=== PATIENT | male | born 1935 | race Caucasian/White ===

== ENCOUNTER 2018-02-23 07:10 | Outpatient (CLI) | payer OTHER | END 2018-02-23 07:13 | disposition home or self-care (01) | LOC: SONOGRAMA 07:10 → MAMO-SONO 07:45 | DX: R10.84 Generalized abdominal pain (principal) ==

== ENCOUNTER 2018-02-24 09:12 | Outpatient (CLI) | payer OTHER | END 2018-02-24 09:16 | disposition home or self-care (01) | LOC: NUCLEAR 09:12 | DX: I87.2 Venous insufficiency (chronic) (peripheral) (principal) ==

== ENCOUNTER → 2018-02-26 08:21 | Outpatient (CLI) | payer OTHER | END | disposition home or self-care (01) | LOC: LAB 08:21 | DX: I10 Essential (primary) hypertension (principal); E11.9 Type 2 diabetes mellitus without complications; E03.8 Other specified hypothyroidism; E78.2 Mixed hyperlipidemia; N40.0 Benign prostatic hyperplasia without lower urinary tract symptoms; K92.1 Melena; D64.0 Hereditary sideroblastic anemia; M81.0 Age-related osteoporosis without current pathological fracture ==

== ENCOUNTER 2018-02-27 08:17 | Outpatient (CLI) | payer OTHER | END 2018-02-27 08:27 | disposition home or self-care (01) | LOC: LAB 08:17 | DX: I10 Essential (primary) hypertension (principal); E11.9 Type 2 diabetes mellitus without complications; E03.8 Other specified hypothyroidism; E78.2 Mixed hyperlipidemia; N40.0 Benign prostatic hyperplasia without lower urinary tract symptoms; K92.1 Melena; D64.0 Hereditary sideroblastic anemia; M81.0 Age-related osteoporosis without current pathological fracture ==

== ENCOUNTER 2018-03-10 08:10 | Outpatient (CLI) | payer OTHER ==
[~2018-03-10] VITALS: Ht 162.6 cm; Wt 64.9 kg
== END 2018-03-10 14:43 | disposition home or self-care (01) ==
LOC: OFIC 805 08:10
DX: H90.3 Sensorineural hearing loss, bilateral (principal); H61.23 Impacted cerumen, bilateral; J31.0 Chronic rhinitis; J34.2 Deviated nasal septum

== ENCOUNTER 2018-04-13 08:53 | Outpatient (CLI) | payer OTHER | END 2018-04-13 09:03 | disposition home or self-care (01) | LOC: TOM 08:53 | DX: K74.69 Other cirrhosis of liver (principal); N32.3 Diverticulum of bladder ==

== ENCOUNTER 2018-04-20 10:20 | Outpatient (CLI) | payer OTHER | END 2018-04-20 15:00 | disposition home or self-care (01) | LOC: LAB 10:20 | DX: D69.3 Immune thrombocytopenic purpura (principal); R74.8 Abnormal levels of other serum enzymes ==

== ENCOUNTER 2018-06-02 09:56 | Outpatient (CLI) | payer OTHER | END 2018-06-02 10:09 | disposition home or self-care (01) | LOC: LAB 09:56 | DX: N39.0 Urinary tract infection, site not specified (principal); R82.8 Abnormal findings on cytological and histological examination of urine ==